=== PATIENT | female | born 1975 | race American Indian/Alaskan Native ===

== ENCOUNTER 2021-07-23 16:44 | Emergency (ER) | payer SELFPAY ==
[2021-07-23 17:29] VITALS: BP 125/82
--- NOTE | 2021-07-23 18:13 | XRay Report ---
XR hand 2V LT INDICATION / CLINICAL INFORMATION: injury. COMPARISON: None available. FINDINGS: Oblique mildly displaced proximal fourth metatarsal fracture. Normal alignment. Joint spaces are pre served. No destructive osseous lesion or suspicious periosteal reaction. Impression: 1.Oblique mildly displaced proximal fourth metatarsal fracture Signer Name: Rhett Boyer MD Signed: 07/23/2021 6:09 PM Workstation Name: [id number]
--- NOTE | 2021-07-23 18:18 | Cat Scan Report ---
CT head/brain wo con INDICATION / CLINICAL INFORMATION: 45 years Female; head injury. TECHNIQUE: Routine CT head without contrast. All CT scans at this location are performed using CT dos e reduction for ALARA by means of automated exposure control. COMPARISON: None. FINDINGS: BRAIN / INTRACRANIAL CONTENTS: No acute hemorrhage, mass effect, midline shift, hydrocephalus, or acu te, large territorial infarct. No signs of significant atrophy or chronic infarct. No significant whi te matter abnormality seen. CRANIOCERVICAL JUNCTION: No significant abnormality. ORBITS: No significant abnormality of visualized orbits. SINUSES / MASTOIDS: Very small air-fluid levels in the left maxillary antrum. ADDITIONAL FINDINGS: None. IMPRESSION: 1. No focal mass, hemorrhage, hydrocephalus, or acute, large territorial infarct. Signer Name: Bharat Marshall MD, III Signed: 07/23/2021 6:13 PM Workstation Name: [email or web address]
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
[2021-07-24] MEDS ORDERED: AMOXICILLIN/K CLAV 875/125MG TAB PO ONE (02:59)
[2021-07-24] MEDS: HYDROcodone/ACETAMINOPHEN 5-325 MG TAB PO ONE ×2 (04:02→04:12)
[2021-07-24] MEDS ORDERED: IBUPROFEN 800 MG TAB PO ONE (05:04)
== END 2021-07-24 05:14 | disposition home or self-care (01) ==
LOC: ED 16:44
DX: S92.342A Displaced fracture of fourth metatarsal bone, left foot, initial encounter for closed fracture (principal); S00.03XA Contusion of scalp, initial encounter; M54.50 Low back pain, unspecified; Z79.899 Other long term (current) drug therapy; Y04.8XXA Assault by other bodily force, initial encounter; Y93.89 Activity, other specified; Y92.89 Other specified places as the place of occurrence of the external cause; Y99.8 Other external cause status
CPT/HCPCS: 70450; 99284